=== PATIENT | female | born 1995 | race Caucasian/White ===

== ENCOUNTER 2018-02-23 12:19 | Emergency (ER) | payer OTHER ==
[~2018-02-23] VITALS: Ht 160 cm; Wt 58.1 kg
[2018-02-23 12:26] VITALS: BP 140/83
[2018-02-23] MEDS ORDERED: LIDOCAINE-MPF 2%, 2ML ONE (12:56)
[2018-02-23] MEDS ORDERED: CEFTRIAXONE 1,000 MG ONE (12:56)
[2018-02-23] MEDS ORDERED: DIPH,PERTUSS(ACELL),TET VAC/PF 0.5 ML IM-VACC ONE ×2 (12:57→13:00)
[2018-02-23] MEDS ORDERED: CEFTRIAXONE 1,000 MG IM ONE (13:00)
[2018-02-23] MEDS ORDERED: LIDOCAINE-MPF 1%, 5ML INFIL ONE (13:00)
== END 2018-02-23 14:24 | disposition home or self-care (01) ==
LOC: ED 14:00
DX: S41.011A Laceration without foreign body of right shoulder, initial encounter (principal); X58.XXXA Exposure to other specified factors, initial encounter; Y93.89 Activity, other specified; Y92.009 Unspecified place in unspecified non-institutional (private) residence as the place of occurrence of the external cause; Y99.8 Other external cause status
CPT/HCPCS: 90471; 90715; 96372; 99284; J0696